=== PATIENT | male | born 1965 | race African-American/Black ===

== ENCOUNTER → 2018-11-24 | Outpatient (CLI) | payer OTHER ==
--- NOTE | 2018-11-24 13:40 | RAD ---
EXAM: Right hip, 2 views. HISTORY: Fall. Pain. COMPARISON: None. FINDINGS: 2 views the right hip are obtained. There is no fracture, dislocation or subluxation. There is marginal spurring of the femoral head. IMPRESSION: Mild right hip osteoarthritis. No acute osseous finding. Electronically signed by: Eli Nails MD (11/24/2018 1:37 PM) [id number]
== END | disposition home or self-care (01) ==
LOC: PMG 12:11
PROVIDERS: ATTEND Registered Nurse
DX: M16.11 Unilateral primary osteoarthritis, right hip (principal)
CPT/HCPCS: 73502

== ENCOUNTER → 2018-12-09 | Outpatient (CLI) | payer OTHER ==
--- NOTE | 2018-12-09 14:15 | RAD ---
Right little finger, 2 views, 12/04/2018: HISTORY: Pain, previous injury No previous radiographs are available at this time for comparison purposes. There appears to be fusion of the PIP joint. There is deformity of the DIP joint with erosive changes along the articular margins. No acute fracture or dislocation is evident. The limited view of the right hand shows no other findings to suggest an erosive arthropathy. The DIP joint changes of the little finger may be due to old trauma or chronic infection. Electronically signed by: Jose Luis Trevizo MD (12/09/2018 2:12 PM) [facility]
== END | disposition home or self-care (01) ==
LOC: PMG 11:26
PROVIDERS: ATTEND Registered Nurse
DX: M20.091 Other deformity of right finger(s) (principal)
CPT/HCPCS: 73140

== ENCOUNTER 2021-09-02 09:43 | Emergency (ER) | payer OTHER ==
[~2021-09-02] VITALS: Ht 182.9 cm; Wt 87.0 kg
[2021-09-02 10:06] VITALS: BP 143/94
--- NOTE | 2021-09-02 10:10 | PHYS DOC ---
General Adult HPI: HPI: Patient is a 56-year-old male who presents to the emergency department with a 3- day history of a nonproductive cough, body aches and decreased appetite. Patient rates his generalized body ache 7 out of 10. No treatment prior to arrival. Patient resides at the [facility] and states that people have been coughing all around him but he does not have any known sick exposures. Patient has a history of high cholesterol and COPD. Patient reports that he is not aware that he has a history of COPD but according to staff at the [facility] he does. Patient denies taking any medications for his COPD. He is a current smoker. Patient denies shortness of breath, fevers, nausea, vomiting, chest pain, loss of taste or smell. Patient's vital signs are stable, he is afebrile and in no acute distress. (YONIS GARY APRN) Review of Systems: Review of Systems: Constitutional: See HPI Respiratory: See HPI Cardiovascular: See HPI GI: See HPI Musculoskeletal: See HPI (YONIS GARY APRN) Physical Exam: PE: Constitutional: Well developed, well nourished, no acute distress, non-toxic appearance. [] HENT: Normocephalic, atraumatic, bilateral external ears normal, oropharynx moist, no oral exudates, nose normal. [] Eyes: PERRL, EOMI, conjunctiva normal, no discharge. [] Neck: Normal range of motion, no stridor Cardiovascular:Heart rate regular rhythm, no murmur [] Lungs & Thorax: Bilateral breath sounds clear to auscultation [] Abdomen: Bowel sounds normal, soft, no tenderness, no masses, no pulsatile masses. [] Skin: Warm, dry, no erythema, no rash. [] Back: Normal range of motion Extremities: No tenderness, no cyanosis, no clubbing, ROM intact, no edema. [] Neurologic: Alert and oriented X 3, normal motor function, normal sensory function, no focal deficits noted. [] Psychologic: Affect normal, judgement normal, mood normal. [] (YONIS GARY APRN) Current Patient Data: Labs: Laboratory Tests Test 09/02/21 10:22 Influenza Type A (Rapid) Negative Influenza Type B (Rapid) Negative Current Medications Medications (Trade) Dose Ordered Sig/Lubna Route PRN Reason Start Time Stop Time Status Last Admin Dose Admin Ibuprofen (Motrin) 600 mg 1X ONCE PO 09/02/21 10:15 09/02/21 10:16 DC 09/02/21 10:20 (YONIS GARY APRN) EKG: EKG: [] (YONIS GARY APRN) Radiology/Procedures: Radiology/Procedures: []PROCEDURE: PORTABLE CHEST 1V EXAM: Chest, single view. HISTORY: Cough. COMPARISON: None. FINDINGS: A frontal view of the chest is obtained. There is multifocal interstitial infiltrate within the right greater than left lung. There is no consolidation, pleural effusion or pneumothorax. The heart is normal in size. IMPRESSION: Multifocal right greater than left lung interstitial infiltrate. Electronically signed by: Eli Bonilla MD (09/02/2021 10:22 AM) [id number] DICTATED AND SIGNED BY: ELI BONILLA MD DATE: 09/02/21 1022 CC: YONIS GARY APRN; ELADIA SANTIAGO PHOTO COLORER-C ~MTH0 0 (YONIS GARY APRN) Heart Score: C/O Chest Pain: No Risk Factors: Risk Factors: DM, Current or recent (<one month) smoker, HTN, HLP, family history of CAD, obesity. Risk Scores: Score 0 - 3: 2.5% MACE over next 6 weeks - Discharge Home Score 4 - 6: 20.3% MACE over next 6 weeks - Admit for Clinical Observation Score 7 - 10: 72.7% MACE over next 6 weeks - Early Invasive Strategies (YONIS GARY APRN) Course & Med Decision Making: Course & Med Decision Making Pertinent Labs and Imaging studies reviewed. (See chart for details) [] Patient presents to the emergency department with a 3-day history of cough, body aches and decreased appetite. Patient's vital signs are stable and he is in no acute distress. His temperature is 99.6. Patient be tested for influenza and COVID-19. Patient's rapid influenza test was negative. Patient's rapid Covid test was positive. Chest x-ray was performed that showed Covid pneumonia, patient will be treated with an antibiotic. Due to patient's borderline fever and his body aches, he will be given a dose of ibuprofen in the emergency department. Patient's vital signs are stable and he is in no acute distress, he is not requiring any oxygen. Patient advised to increase his fluids, rest, use Tylenol and Motrin at home. Advised to use pulse oximetry to monitor his oxygen saturations. I discussed with patient all findings and diagnostic testing as well as the need to follow-up with PCP for further evaluation and treatment or return to the ER if any new or worsening symptoms. Strict return precautions were also discussed at length. Patient voiced understanding and agreement with the plan. Patient is hemodynamically stable at the time of disposition. (YONIS GARY APRN) Dragon Disclaimer: Dragon Disclaimer: This electronic medical record was generated, in whole or in part, using a voice recognition dictation system. (YONIS GARY APRN) Attending Co-Sign The patient was seen and interviewed as well as examined at the bedside. The chart was reviewed. The case was discussed. Agree with the plan of care. (JUAN JOSE GARCIA DO) Departure Departure: Impression: Primary Impression: Pneumonia due to COVID-19 virus Additional Impression: COVID-19 Disposition: 01 HOME / SELF CARE / HOMELESS Condition: GOOD Referrals: ELADIA SANTIAGO PHOTO COLORER-C (PCP) Patient Instructions: Pneumonia, Adult Additional Instructions: You were seen in the emergency department for cough, body aches decreased appetite. Your rapid influenza test was negative and your rapid Covid test was positive. We performed a chest x-ray in the emergency department that showed Covid pneumonia. You will be treated with an antibiotic. Please make sure that you start and finish it completely. Please increase your fluids and rest. For your body aches and/or fevers you can take Tylenol and ibuprofen. You should purchase a pulse oximeter and monitor your oxygen saturations and your heart rate at home. Please return to the emergency department if your oxygen s aturation drops below 90%. Please follow-up with your primary care provider tomorrow regarding your ER visit. Please return to the emergency department if you develop shortness of breath, high fevers refractory to treatment, intractable nausea or vomiting, chest pain, weakness or any new or worsening concerns. Scripts Azithromycin (AZITHROMYCIN TABLET) 250 Mg Tablet 1 PKG PO UD for pneumonia for 5 Days, #6 TAB 0 Refills 2 the first day followed by 1 for days 2-5 Prov: YONIS GARY APRN 09/02/21 YONIS GARY APRN Sep 02, 2021 10:10 JUAN JOSE GRACIA DO Sep 02, 2021 16:15
[2021-09-02] MEDS ORDERED: IBUPROFEN 600 MG TABLET. PO ONE (10:15)
--- NOTE | 2021-09-02 10:25 | RAD ---
EXAM: Chest, single view. HISTORY: Cough. COMPARISON: None. FINDINGS: A frontal view of the chest is obtained. There is multifocal interstitial infiltrate within the right greater than left lung. There is no consolidation, pleural effusion or pneumothorax. The h eart is normal in size. IMPRESSION: Multifocal right greater than left lung interstitial infiltrate. Electronically signed by: Eli Nails MD (09/02/2021 10:22 AM) [id number]
[2021-09-02 11:18] LABS: INFLUENZA A PATIENT NEGATIVE (NEGATIVE); INFLUENZA B PATIENT NEGATIVE (NEGATIVE)
[2021-09-02] MEDS ORDERED: AZIT250T6 PO (11:27)
== END 2021-09-02 12:05 | disposition home or self-care (01) ==
LOC: ER 09:43
DX: U07.1 COVID-19 (principal); J12.82 Pneumonia due to coronavirus disease 2019; E78.00 Pure hypercholesterolemia, unspecified; J44.9 Chronic obstructive pulmonary disease, unspecified; F17.200 Nicotine dependence, unspecified, uncomplicated
CPT/HCPCS: 71045; 87426; 87804; 99284; C9803; U0003

== ENCOUNTER 2021-09-06 11:03 | Emergency (ER) | payer OTHER ==
[~2021-09-06] VITALS: Ht 182.9 cm; Wt 87.0 kg
[~2021-09-06 11:03] MED LIST: AZIT250T6 PO
[2021-09-06] MEDS ORDERED: ACETAMINOPHEN 500 MG TABLET PO ONE (12:15)
[2021-09-06] MEDS ORDERED: IOHEXOL 350 MG/ML 100 ML VIAL. IV ONE (12:15)
[2021-09-06] MEDS ORDERED: DEXAMETHASONE SOD PHOS 10 MG/ML VIAL. IVP ONE (12:15)
[2021-09-06] MEDS ORDERED: IV NORMAL SALINE 1,000ML 1,000 ML IV ONE (12:15)
[2021-09-06] MEDS ORDERED: AZITHROMYCIN 500 MG in IV NORMAL SALINE 250ML 250 ML IV ONE (12:15)
[2021-09-06] MEDS ORDERED: 0.9 % SODIUM CHLORIDE 10 ML DISP.SYRIN. IV PRN (12:15)
[2021-09-06] MEDS ORDERED: AZITHROMYCIN 500 MG VIAL. IV ONE (12:33)
[2021-09-06] MEDS ORDERED: IV NORMAL SALINE 250ML 250 ML ONE (12:33)
--- NOTE | 2021-09-06 12:36 | PHYS DOC ---
Past History Past Surgical History: No Surgical History Alcohol Use: Sober Adult General Chief Complaint Chief Complaint: DYSPNEA/RESPIRATOY DISTRESS HPI HPI Patient is a 56-year-old male patient with no significant medical history presented to the ED today with worsening Covid symptoms. Patient states he was diagnosed with COVID-19 4 days ago and sent home on azithromycin. He states his symptoms are getting worse. He states he has increased coughing, shortness of breath, fatigue and currently running a fever. Reports chest discomfort when coughing. He states he was not vaccinated against COVID19 Review of Systems Review of Systems Constitutional: reports fever Eyes: Denies change in visual acuity, redness, or eye pain [] HENT: Denies nasal congestion or sore throat [] Respiratory: Reports cough and shortness of breath [] Cardiovascular: No additional information not addressed in HPI [] GI: Denies abdominal pain, nausea, vomiting, bloody stools or diarrhea [] : Denies dysuria or hematuria [] Musculoskeletal: Denies back pain or joint pain [] Integument: Denies rash or skin lesions [] Neurologic: Denies headache, focal weakness or sensory changes [] All other systems were reviewed and found to be within normal limits, except as documented in this note. Current Medications Current Medications Current Medications Medications (Trade) Dose Ordered Sig/Lubna Start Time Stop Time Status Last Admin Dose Admin Acetaminophen (Tylenol) 1,000 mg 1X ONCE 09/06/21 12:15 09/06/21 12:16 DC Azithromycin 500 mg/Sodium Chloride 250 ml @ 250 mls/hr 1X ONCE 09/06/21 12:15 09/06/21 13:14 Dexamethasone Sodium Phosphate (Decadron) 10 mg 1X ONCE 09/06/21 12:15 09/06/21 12:16 DC Iohexol (Omnipaque 350 Mg/ml) 100 ml 1X ONCE 09/06/21 12:15 09/06/21 12:20 DC Sodium Chloride 1,000 ml @ 1,000 mls/hr 1X ONCE 09/06/21 12:15 09/06/21 13:14 Sodium Chloride (Normal Saline Flush) 10 ml QSHIFT PRN 09/06/21 12:15 Allergies Allergies Allergies Coded Allergies Type Severity Reaction Last Updated Verified No Known Drug Allergies 09/02/21 No Physical Exam Physical Exam Constitutional: Well developed, well nourished, no acute distress, non-toxic appearance. [] HENT: Normocephalic, atraumatic, bilateral external ears normal, oropharynx moist, no oral exudates, nose normal. [] Eyes: PERRLA, EOMI, conjunctiva normal, no discharge. [] Neck: Normal range of motion, no tenderness, supple, no stridor. [] Cardiovascular:Heart rate regular rhythm, no murmur [] Lungs & Thorax: Bilateral breath sounds clear to auscultation [] Abdomen: Bowel sounds normal, soft, no tenderness, no masses, no pulsatile masses. [] Skin: Warm, dry, no erythema, no rash. [] Back: No tenderness, no CVA tenderness. [] Extremities: No tenderness, no cyanosis, no clubbing, ROM intact, no edema. [] Neurologic: Alert and oriented X 3, normal motor function, normal sensory function, no focal deficits noted. [] Psychologic: Affect normal, judgement normal, mood normal. [] Current Patient Data Vital Signs Vital Signs Date Time Temp Pulse Resp B/P (MAP) Pulse Ox O2 Delivery O2 Flow Rate FiO2 09/06/21 11:45 99.6 76 24 101/56 (71) 94 Room Air EKG EKG [] Radiology/Procedures Radiology/Procedures []PROCEDURE: CT ANGIOGRAPHY CHEST CTA CHEST History: Short of air, positive Covid. Rule out PE. Comparison: None. Technique: CTA of the pulmonary arteries with intravenous contrast. 3-D postprocessing was performed. Findings: Pulmonary arteries: No pulmonary embolism. Aorta and great vessels: No aneurysm or dissection of the aortic arch or thoracic aorta. Thyroid: No significant abnormalities. Mediastinum and reynaldo: Enlarged right lower pretracheal lymph node measuring 1.1 cm short axis and subcarinal lymph node measuring 1.1 cm short axis, likely reactive. Esophagus: The visualized esophagus is normal. Heart: The heart is normal in size. There is no pericardial effusion. Airways, Lungs, Pleura: Airways are patent. There are patchy predominantly peripheral airspace opacities bilaterally. No pleural effusion or pneumothorax. Upper abdomen: Limited evaluation of the upper abdomen is unremarkable. Osseous structures and soft tissues: Bilateral gynecomastia. Impression: 1. No pulmonary embolism, aortic aneurysm or aortic dissection. 2. Patchy bilateral airspace disease compatible with Covid pneumonia. ------ Exposure: One or more of the following individualized dose reduction techniques were utilized for this examination: 1. Automated exposure control 2. Adjustment of the mA and/or kV according to patient size 3. Use of iterative reconstruction technique. Electronically signed by: Jeff Patterson MD (09/06/2021 1:41 PM) [facility] DICTATED AND SIGNED BY: JEFF PATTERSON MD DATE: 09/06/21 2170 CC: RASHID TOMLIN APRN; ELADIA SANTIAGO NOCTURNIST PHYSICIAN-C ~MTH0 0 Heart Score C/O Chest Pain: N/A Risk Factors: Risk Factors: DM, Current or recent (<one month) smoker, HTN, HLP, family history of CAD, obesity. Risk Scores: Risk Factors: DM, Current or recent (<one month) smoker, HTN, HLP, family histo ry of CAD, obesity. Course & Med Decision Making Course & Med Decision Making Pertinent Labs and Imaging studies reviewed. (See chart for details) This is a 56-year-old male patient presented to the ED today complaining of worsening Covid symptoms. Patient was diagnosed with COVID-19 4 days ago and currently states he has worsening shortness of breath, coughing, fatigue and fevers. Arrives in the ED with a temperature of 99.6, heart rate 76, respiration 24 on room air, O2 sats 94%, blood pressure 101/56. CBC with a WBC of 2.1, hemoglobin 12.5, hematocrit 37.0. Creatinine 1.5 BUN 19. CTA chest was negative for PE, noted for COVID-19 Pneumonia Patient was given Decadron and IV fluids in the ED as well as azithromycin 500 mg IV. Will be discharged with doxycycline for 7 days and Decadron. Provided instructions to follow-up with PCP next week. Instructed to return to the ED at any point symptoms worsen Dragon Disclaimer Dragon Disclaimer This electronic medical record was generated, in whole or in part, using a voice recognition dictation system. Departure Departure: Impression: Primary Impression: COVID-19 Additional Impressions: Pneumonia due to COVID-19 virus Fever Shortness of breath Disposition: HOME / SELF CARE / HOMELESS Condition: STABLE Referrals: ELADIA SANTIAGO NOCTURNIST PHYSICIAN-C (PCP) follow up next week Patient Instructions: Fever, Adult, [id number], Pneumonia, Adult, [id number] Additional Instructions: You were evaluated in the emergency room for Covid 19. Please take the prescri bed medications as ordered. Please quarantine yourself for 7 more days. Take Tylenol or Motrin for pain or fever. Push fluids. Follow-up with your doctor next week Scripts Benzonatate (BENZONATATE) 100 Mg Capsule 1 CAP PO TID, #30 CAP Prov: RASHID TOMLIN APRN 09/06/21 Dexamethasone (Decadron) 4 Mg Tablet 1 TAB PO BID for 5 Days, #10 TAB 0 Refills Prov: RASHID TOMLIN APRN 09/06/21 Albuterol Sulfate (PROVENTIL HFA INHALER) 6.7 Gm Hfa.aer.ad 1 PUFF INH PRN Q4HRS PRN for FOR ASTHMA, #1 EACH 0 Refills Prov: RASHID TOMLIN APRN 09/06/21 Doxycycline Hyclate (DOXYCYCLINE HYCLATE) 100 Mg Tablet 1 TAB PO BID, #14 TAB Prov: RASHID TOMLIN APRN 09/06/21 Problem Qualifiers Additional Impressions: Fever Fever type: unspecified Qualified Codes: R50.9 - Fever, unspecified RASHID TOLMIN APRN Sep 06, 2021 12:36
[2021-09-06 13:07] LABS: BASO % 1 % (0-3); EOS % 0 % (0-3); HEMOGLOBIN 12.5 g/dL (13.0-17.5); LYMPH # 0.3 x10^3/uL (1.0-4.8); LYMPH % 11 % (24-48); MEAN CORPUSCULAR HEMOGLOBIN 31 pg (25-35); MEAN CORPUSCULAR HGB CONC 34 g/dL (31-37); MEAN CORPUSCULAR VOLUME 91 fL (79-100); MONO # 0.3 x10^3/uL (0.0-1.1); MONO % 12 % (0-9); NEUT # 1.9 x10^3uL (1.8-7.7); NEUT % 76 % (31-73); PLATELET COUNT 182 x10^3/uL (140-400); RED BLOOD COUNT 4.07 x10^6/uL (4.30-5.70); RED CELL DISTRIBUTION WIDTH 13.5 % (11.5-14.5); WHITE BLOOD COUNT 2.5 x10^3/uL (4.0-11.0)
[2021-09-06 13:15] LABS: CALCIUM 8.2 mg/dL (8.5-10.1); CREATININE 1.5 mg/dL (0.7-1.3); GFR 58.6; POTASSIUM 3.8 mmol/L (3.5-5.1)
[2021-09-06 13:20] LABS: ALBUMIN 3.5 g/dL (3.4-5.0); ALBUMIN/GLOBULIN RATIO 0.9 (1.0-1.7); TOTAL BILIRUBIN 0.7 mg/dL (0.2-1.0); TOTAL PROTEIN 7.2 g/dL (6.4-8.2)
--- NOTE | 2021-09-06 13:43 | RAD ---
CTA CHEST History: Short of air, positive Covid. Rule out PE. Comparison: None. Technique: CTA of the pulmonary arteries with intravenous contrast. 3-D postprocessing was performed. Findings: Pulmonary arteries: No pulmonary embolism. Aorta and great vessels: No aneurysm or dissection of the aortic arch or thoracic aorta. Thyroid: No significant abnormalities. Mediastinum and reynaldo: Enlarged right lower pretracheal lymph node measuring 1.1 cm short axis and sub carinal lymph node measuring 1.1 cm short axis, likely reactive. Esophagus: The visualized esophagus is normal. Heart: The heart is normal in size. There is no pericardial effusion. Airways, Lungs, Pleura: Airways are patent. There are patchy predominantly peripheral airspace opacit ies bilaterally. No pleural effusion or pneumothorax. Upper abdomen: Limited evaluation of the upper abdomen is unremarkable. Osseous structures and soft tissues: Bilateral gynecomastia. Impression: 1. No pulmonary embolism, aortic aneurysm or aortic dissection. 2. Patchy bilateral airspace disease compatible with Covid pneumonia. ------ Exposure: One or more of the following individualized dose reduction techniques were utilized for thi s examination: 1. Automated exposure control 2. Adjustment of the mA and/or kV according to patient size 3. Use of iterative reconstruction technique. Electronically signed by: Jeff Patterson MD (09/06/2021 1:41 PM) [facility]
[2021-09-06] MEDS ORDERED: ALBU2.5V8 INH (13:53)
[2021-09-06] MEDS ORDERED: BENZ-8 PO (13:53)
[2021-09-06] MEDS ORDERED: DOXY100T PO (13:53)
[2021-09-06] MEDS ORDERED: DEXA4TAB63 PO (13:53)
[2021-09-06 14:26] VITALS: BP 126/61
== END 2021-09-06 14:30 | disposition home or self-care (01) ==
LOC: ER 11:03
DX: U07.1 COVID-19 (principal); J12.82 Pneumonia due to coronavirus disease 2019
CPT/HCPCS: 36415; 71275; 80053; 83605; 85025; 87040; 96365; 96375; 99285; J0456; J1100; J7030; J7050; Q9967

== ENCOUNTER 2021-09-08 15:50 | Emergency (ER) | payer OTHER ==
[~2021-09-08 15:50] MED LIST changes: +ALBU2.5V8 INH; +BENZ-8 PO; +DEXA4TAB63 PO; +DOXY100T PO
--- NOTE | 2021-09-08 16:01 | PHYS DOC ---
Past History Past Surgical History: No Surgical History Alcohol Use: Sober Adult General Chief Complaint Chief Complaint: SHORTNESS OF BREATH HPI HPI Patient is a 56-year-old male presenting for known Covid infection. He was diagnosed at our facility 6 days prior and subsequently discharged with azithromycin prescription after unremarkable work-up. He came back 48 hours ago for ongoing symptoms and had comprehensive evaluation that included CT angio of the chest that again was nonconcerning for any emergent or surgical issues, just findings consistent with Covid pneumonia. Patient reports he went back to [facility] but ongoing upper respiratory symptoms, generalized body aches, fatigue, and decreased appetite prompted him to come in for repeat evaluation. Reports he has not been taking his antibiotics as the [facility] has not filled them. He has not been taking any other medication such as Tylenol and/or ibuprofen for aches and pains. He was unvaccinated against COVID-19. Denies any other noteworthy comorbid conditions Review of Systems Review of Systems Fourteen body systems of review of systems have been reviewed. See HPI for pertinent positives and negative responses, other pope all other systems are negative, non-pertinent or non-contributory Allergies Allergies Allergies Coded Allergies Type Severity Reaction Last Updated Verified No Known Drug Allergies 09/02/21 No Physical Exam Physical Exam Constitutional: Well developed, well nourished, no acute distress, non-toxic appearance. HENT: Normocephalic, atraumatic, bilateral external ears normal, oropharynx moist, no oral exudates, bilateral nasal turbinates engorged with anterior rhinorrhea present Eyes: PERRLA, EOMI, conjunctiva normal, no discharge. Neck: Normal range of motion, no tenderness, supple, no stridor. Cardiovascular: Heart rate regular, sinus rhythm, no murmurs rubs or gallops Lungs & Thorax: No obvious respiratory distress, hyperventilating on arrival with crackles present to bilateral lung bases in no obvious distress, no accessory muscle use Abdomen: Bowel sounds normal, soft, no tenderness, no masses, no pulsatile masses. Nonsurgical abdomen, no peritoneal signs Skin: Warm, dry, no erythema, no rash. Back: No tenderness, no CVA tenderness. Extremities: No tenderness, no cyanosis, no clubbing, ROM intact, no edema. Neurologic: Alert and oriented X 3, grossly normal motor & sensory function, no focal deficits noted. Psychologic: Anxious affect and mood Current Patient Data Lab Results Laboratory Tests Test 09/08/21 16:15 White Blood Count 4.8 x10^3/uL Red Blood Count 3.81 x10^6/uL Hemoglobin 11.7 g/dL Hematocrit 35.0 % Mean Corpuscular Volume 92 fL Mean Corpuscular Hemoglobin 31 pg Mean Corpuscular Hemoglobin Concent 33 g/dL Red Cell Distribution Width 13.8 % Platelet Count 277 x10^3/uL Neutrophils (%) (Auto) 77 % Lymphocytes (%) (Auto) 9 % Monocytes (%) (Auto) 14 % Eosinophils (%) (Auto) 0 % Basophils (%) (Auto) 0 % Neutrophils # (Auto) 3.7 x10^3uL Lymphocytes # (Auto) 0.4 x10^3/uL Monocytes # (Auto) 0.6 x10^3/uL Eosinophils # (Auto) 0.0 x10^3/uL Basophils # (Auto) 0.0 x10^3/uL Sodium Level 137 mmol/L Potassium Level 4.0 mmol/L Chloride Level 102 mmol/L Carbon Dioxide Level 31 mmol/L Anion Gap 4 Blood Urea Nitrogen 19 mg/dL Creatinine 1.3 mg/dL Estimated GFR (Cockcroft-Gault) 69.1 BUN/Creatinine Ratio 15 Glucose Level 103 mg/dL Calcium Level 8.2 mg/dL Total Bilirubin 1.3 mg/dL Aspartate Amino Transf (AST/SGOT) 65 U/L Alanine Aminotransferase (ALT/SGPT) 35 U/L Alkaline Phosphatase 47 U/L Troponin I High Sensitivity 17 ng/L Total Protein 6.6 g/dL Albumin 3.4 g/dL Albumin/Globulin Ratio 1.1 Current Medications Medications (Trade) Dose Ordered Sig/Lubna Route PRN Reason Start Time Stop Time Status Last Admin Dose Admin Sodium Chloride 1,000 ml @ 1,000 mls/hr 1X ONCE IV 09/08/21 16:15 09/08/21 17:14 Azithromycin 500 mg/Sodium Chloride 250 ml @ 250 mls/hr 1X ONCE IV 09/08/21 16:15 09/08/21 17:14 Sodium Chloride 250 ml @ As Directed STK-MED ONCE .ROUTE 09/08/21 16:59 09/08/21 16:59 DC Azithromycin (Zithromax) 500 mg STK-MED ONCE IV 09/08/21 16:59 09/08/21 16:59 DC EKG EKG EKG ordered and interpreted by myself hours as sinus rhythm at 80 bpm, unremarkable intervals, no axis deviation, no obvious ischemic findings, no STEMI Radiology/Procedures Radiology/Procedures XR CHEST 1V Clinical History: Reason: shob, HX COVID PNEUMONIA / Spl. Instructions: / History: Technique: AP view of the chest was obtained at 09/08/2021 4:25 PM. Comparison: September 02, 2021. Findings: The heart is top normal limits in size. The portal vessels appear normal. There is patchy peripheral opacities of lungs bilaterally. The pleural margins are clear. Impression: COVID pneumonia. This appears slightly worse. Electronically signed by: Hero Collins III, MD (09/08/2021 4:32 PM) [facility] Heart Score C/O Chest Pain: No HEART Score for Chest Pain: HEART Score for Chest Pain Response (Comments) Value History Slighlty/Non-Suspicious 0 ECG Normal 0 Age >45 - < 65 1 Risk Factors 1 or 2 Risk Factors 1 Troponin < Normal Limit 0 Total 2 Risk Factors: Risk Factors: DM, Current or recent (<one month) smoker, HTN, HLP, family history of CAD, obesity. Risk Scores: Risk Factors: DM, Current or recent (<one month) smoker, HTN, HLP, family history of CAD, obesity. Course & Med Decision Making Course & Med Decision Making Airway patent, breathing unlabored, IV access and vitals obtained concerning for tachypnea from hyperventilation only HPI physical exam and comprehensive ER work-up nonconcerning for any emergent or surgical issues. He continues to be symptomatic from COVID-19 in an unvaccinated individual Patient has not been taking prescribed azithromycin for COVID-19 pneumonia due to issues at [facility] filling sent prescription. I contacted their facility, issues were due to Golden holiday, patient received dose today and has RX ready to be filled for continued use tomorrow Patient has not been adhering to pulmonary hygiene recommendations and has been in bed, he was educated extensively on need to get up, utilize incentive spirometry etc. as sedentary and supine positioning will worsen his condition as we are seeing Ultimately I disclosed there is no indication for further diagnostic work-up or need for hospitalization, he is unfortunately just suffering from classic COVID- 19 symptoms. Continued supportive care practices, medication adherence and self quarantine recommendations given Murali Disclaimer Murali Disclaimer This electronic medical record was generated, in whole or in part, using a voice recognition dictation system. Departure Departure: Impression: Primary Impression: Pneumonia due to COVID-19 virus Disposition: HOME / SELF CARE / HOMELESS Condition: STABLE Referrals: ELADIA SANTIAGOC (PCP) Additional Instructions: As discussed prior to ER departure, your vitals, physical exam and comprehensive ER work-up were nonconcerning for any emergent or surgical issues. You continue to be symptomatic from known COVID-19 virus and have developed a pneumonia. You have not been mobile, have not been taking antibiotics as prescribed, taking any [id number] NSAIDs and/or Tylenol for pain and aches, or exercising proper pulmonary hygiene that was previously discussed with you likely contributing to your ongoing symptoms. There was no indication for further diagnostic work-up and/or need for hospitalization at this time. Your condition will worsen if you do not adhere to prescribed plan of care and as disclosed, there is concern for potential worsening pulmonary infection that could cause respiratory distress, failure and potentially . If any concerning signs or symptoms present prior to safe outpatient follow-up please do not hesitate to come back for repeat evaluation. Is a pleasure to take care of you and I wish you the best going forward. MONICA MERCHANT DO Sep 08, 2021 16:01
[2021-09-08] MEDS ORDERED: AZITHROMYCIN 500 MG in IV NORMAL SALINE 250ML 250 ML IV ONE (16:15)
[2021-09-08] MEDS ORDERED: IV NORMAL SALINE 1,000ML 1,000 ML IV ONE (16:15)
--- NOTE | 2021-09-08 16:15 | EKG ---
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
--- NOTE | 2021-09-08 16:34 | RAD ---
XR CHEST 1V Clinical History: Reason: shob, HX COVID PNEUMONIA / Spl. Instructions: / History: Technique: AP view of the chest was obtained at 09/08/2021 4:25 PM. Comparison: September 02, 2021. Findings: The heart is top normal limits in size. The portal vessels appear normal. There is patchy peripheral opacities of lungs bilaterally. The pleural margins are clear. Impression: COVID pneumonia. This appears slightly worse. Electronically signed by: Hero Collins III, MD (09/08/2021 4:32 PM) [facility]
[2021-09-08 16:42] LABS: BASO % 0 % (0-3); EOS % 0 % (0-3); HEMOGLOBIN 11.7 g/dL (13.0-17.5); LYMPH # 0.4 x10^3/uL (1.0-4.8); LYMPH % 9 % (24-48); MEAN CORPUSCULAR HEMOGLOBIN 31 pg (25-35); MEAN CORPUSCULAR HGB CONC 33 g/dL (31-37); MEAN CORPUSCULAR VOLUME 92 fL (79-100); MONO # 0.6 x10^3/uL (0.0-1.1); MONO % 14 % (0-9); NEUT # 3.7 x10^3uL (1.8-7.7); NEUT % 77 % (31-73); PLATELET COUNT 277 x10^3/uL (140-400); RED BLOOD COUNT 3.81 x10^6/uL (4.30-5.70); RED CELL DISTRIBUTION WIDTH 13.8 % (11.5-14.5); WHITE BLOOD COUNT 4.8 x10^3/uL (4.0-11.0)
[2021-09-08 16:49] LABS: CALCIUM 8.2 mg/dL (8.5-10.1); CREATININE 1.3 mg/dL (0.7-1.3); GFR 69.1
[2021-09-08 16:56] LABS: ALBUMIN 3.4 g/dL (3.4-5.0); ALBUMIN/GLOBULIN RATIO 1.1 (1.0-1.7); TOTAL BILIRUBIN 1.3 mg/dL (0.2-1.0); TOTAL PROTEIN 6.6 g/dL (6.4-8.2)
[2021-09-08] MEDS ORDERED: AZITHROMYCIN 500 MG VIAL. IV ONE (16:59)
[2021-09-08] MEDS ORDERED: IV NORMAL SALINE 250ML 250 ML ONE (16:59)
== END 2021-09-08 18:20 | disposition home or self-care (01) ==
LOC: ER 15:50
DX: U07.1 COVID-19 (principal); J12.82 Pneumonia due to coronavirus disease 2019
CPT/HCPCS: 36415; 71045; 80053; 84484; 85025; 93005; 96361; 96365; 99285; J0456; J7030; J7050

== ENCOUNTER 2021-09-09 08:25 | Emergency (ER) | payer OTHER ==
[~2021-09-09] VITALS: Ht 182.9 cm; Wt 87.0 kg
[2021-09-09] MEDS ORDERED: IV NORMAL SALINE 1,000ML 1,000 ML IV SCH (08:45)
[2021-09-09] MEDS ORDERED: ACETAMINOPHEN 325 MG TABLET PO ONE (08:45)
--- NOTE | 2021-09-09 09:03 | RAD ---
INDICATION: Reason: soa / Spl. Instructions: / History: COMPARISON: September 08, 2021 FINDINGS: Single view of chest obtained. Cardiac mediastinal silhouette is similar prior and prominent in size. Patchy opacities are again seen within the bilateral lungs with increase of the right lung base tacho red to prior. IMPRESSION: * Bilateral pulmonic opacities are again seen including a region of the right lower lung which appea rs increased from prior. Could be secondary to pneumonia. Electronically signed by: Carlos Darby MD (09/09/2021 9:00 AM) [id number]
--- NOTE | 2021-09-09 09:09 | EKG ---
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
--- NOTE | 2021-09-09 09:24 | PHYS DOC ---
Past History Past Surgical History: No Surgical History Alcohol Use: Sober General Adult EDM: Chief Complaint: FATIGUE HPI: HPI: 56 old -[place] male, presents the ED as a bounce back (4th ed visit since 09/02), complains of shortness of breath, headache, fatigue, cough, and abdominal cramping for the past week stating he tested positive for COVID pneumonia. EMR reviewed-cta chest on 09/06 with no pe. Review of Systems: Review of Systems: Constitutional: Denies fever or chills Eyes: Denies change in visual acuity HENT: Denies nasal congestion or sore throat Respiratory: Denies increased work of breathing or retractions Cardiovascular: Denies chest pain or edema GI: Denies nausea, vomiting, bloody stools or diarrhea : Denies dysuria or hematuria Musculoskeletal: Denies back pain or joint pain Integument: Denies rash or diaphoresis Neurologic: Denies focal weakness or sensory changes Endocrine: Denies polyuria or polydipsia Lymphatic: Denies swollen glands Psychiatric: Denies depression or anxiety Current Medications: Current Meds: Current Medications Medications (Trade) Dose Ordered Sig/Lubna Start Time Stop Time Status Last Admin Dose Admin Acetaminophen (Tylenol) 650 mg 1X ONCE 09/09/21 08:45 09/09/21 08:46 DC 09/09/21 08:54 650 MG Sodium Chloride 1,000 ml @ 1,000 mls/hr Q1H 09/09/21 08:45 09/09/21 09:44 09/09/21 09:07 1,000 MLS/HR Allergies: Allergies: Allergies Coded Allergies Type Severity Reaction Last Updated Verified No Known Drug Allergies 09/09/21 No Physical Exam: PE: Constitutional: Well developed, well nourished, no acute distress, non-toxic appearance. HENT: Normocephalic, atraumatic, Eyes: EOMI, conjunctiva normal, no discharge. Neck: Normal range of motion, supple, Cardiovascular: S1/2 present, regular rhythm Lungs & Thorax: Speaking in full sentences, bilateral equal chest rise, tachypnea with speech Abdomen: soft, no tenderness, Skin: Warm, dry, no erythema, no rash. [] Back: No tenderness, no CVA tenderness. [] Extremities: No tenderness, no cyanosis, no lower extremity edema Neurologic: Alert and oriented X 3, normal motor function, normal sensory function, no focal deficits noted. [] Psychologic: Affect normal, judgement normal, mood normal. [] Current Patient Data: Vital Signs: Vital Signs Date Time Temp Pulse Resp B/P (MAP) Pulse Ox O2 Delivery O2 Flow Rate FiO2 09/09/21 08:36 101.1 96 38 146/77 (100) 96 Room Air EKG: EKG: Sinus rhythm 95 bpm of exacerbation, normal intervals, no T wave inversion, no ST elevation or ST depression Radiology/Procedures: Radiology/Procedures: IMAGING REPORT Signed PATIENT: MARY GARCIA ACCOUNT: [id number] : 1965 LOCATION: ER AGE: 56 SEX: M EXAM STATUS: REG ER ORD. PHYSICIAN: MELANY ROMERO DO REASON: soa PROCEDURE: PORTABLE CHEST 1V INDICATION: Reason: soa / Spl. Instructions: / History: COMPARISON: September 08, 2021 FINDINGS: Single view of chest obtained. Cardiac mediastinal silhouette is similar prior and prominent in size. Patchy opacities are again seen within the bilateral lungs with increase of the right lung base compared to prior. IMPRESSION: * Bilateral pulmonic opacities are again seen including a region of the right lower lung which appears increased from prior. Could be secondary to pneumonia. Electronically signed by: Epifanio Irvin MD (09/09/2021 9:00 AM) [id number] DICTATED AND SIGNED BY: EPIFANIO IRVIN MD DATE: 09/09/21 0859 CC: MELANY ROMERO DO; ELADIA SANTIAGO HIDE SELECTOR-C ~MTH0 0 Heart Score: C/O Chest Pain: No Risk Factors: Risk Factors: DM, Current or recent (<one month) smoker, HTN, HLP, family history of CAD, obesity. Risk Scores: Score 0 - 3: 2.5% MACE over next 6 weeks - Discharge Home Score 4 - 6: 20.3% MACE over next 6 weeks - Admit for Clinical Observation Score 7 - 10: 72.7% MACE over next 6 weeks - Early Invasive Strategies Course & Med Decision Making: Course & Med Decision Making Pertinent Labs and Imaging studies reviewed. (See chart for details) Concern for COVID-19 infection with mild tachypnea with speech in setting of medication noncompliance. Does not require any supplemental oxygen. PE study/CTA chest negative 3 days ago. Patient presented from the [facility] and had not refilled his antibiotics or prescriptions from prior ED visit. RN called esteban-pts' Tessalon Perles, doxycycline, inhaler and Decadron will be sent to the [facility]. Will discharge home with strict ED return precautions were given for hypoxia, chest pain, syncope or neurologic deficits. Encouraged urgent outpatient follow-up with PMD for reevaluation and routine care. Life-threatening processes were considered but are low suspicion at this time, given history, physical exam and ED workup. Pt was educated on all prescription medications and adverse effects. All patient's questions were answered and pt was stable at time of discharge. Life/limb-threatening differential includes but is not limited to, ACS, dysrhythmia, pneumothorax or hemothorax, pulmonary embolus, pneumonia, bronchoconstriction, pulmonary edema, angioedema, epiglottitis, tracheitis, Héctor's angina, RPA/SUPERVISOR RICE MILLING, anaphylaxis, angioedema, cardiac tamponade or murmurs, pericarditis, myocarditis, poisoning or toxicity, sepsis or autoimmune/neurologic disease. I have spoken with the patient and/or caregivers. I explained the patient's condition, diagnoses and treatment plan based on the information available to me at this time. I have answered the patient and/or caregiver's questions and addressed any concerns. The patient and/or caregivers have a good understanding of patient's diagnosis, condition and treatment plan as can be expected at this point. Vital signs have been stable. Patient's condition is stable and appropriate for discharge from the emergency department. Patient will pursue further outpatient evaluation with primary care physician or other designated or consulting physician as outlined in the discharge instruc tions. The patient and/or caregivers are agreeable to this plan of care and follow-up instructions have been explained in detail. The patient and/or caregivers have received these instructions in written form and have expressed an understanding of the discharge instructions. The patient and/or caregivers are aware that any significant change of condition or worsening of symptoms should prompt immediate return to this or the closest emergency department or call to 911. Murali Disclaimer: Murali Disclaimer: This electronic medical record was generated, in whole or in part, using a voice recognition dictation system. Departure Departure: Impression: Primary Impression: Pneumonia due to COVID-19 virus Disposition: HOME / SELF CARE / HOMELESS Condition: STABLE Referrals: ELADIA SANTIAGO (PCP) Follow-up with your primary care physician in 24 to 48 hours OR FOLLOW UP WITH FAMILY MEDICINE: [address] [place] [address] Patient Instructions: Pneumonia, Adult Additional Instructions: Return to ED immediately if your oxygen level drops below 90% (purchase a pulse oximetry at a medical supply store), difficulties breathing including rapid breathing or increased work of breathing (skin sucking under ribs), chest pain or stroke-like symptoms (facial droop, speech changes, arm/leg weakness). You have been tested for or diagnosed with COVID-19. It is an infection caused by a new type of coronavirus. COVID-19 will cause cold-like or mild flu symptoms in most. It can cause more severe symptoms like problems breathing in some. There is no treatment for COVID-19. The body will clear the infection over time. Self-care will help to ease discomfort. Steps to Take: Self-Care Rest as needed. Healthy habits may help you feel better. Steps include: Choose healthy foods including fruits and vegetables. Drink water throughout the day. Get plenty of sleep each night. If you smoke, try to quit. It may ease breathing. Avoid alcohol. Keep Others Healthy The virus can spread to others. Droplets are released every time you sneeze or cough. The droplets can get into the mouth, nose, or eyes of people near you and lead to infection. To lower the chances of spreading COVID-19 to others: Stay at home until your doctor has said it is safe to leave. If you tested positive this will mean staying isolated until both of the following are true: At least 7 days have passed since the start of illness. You are free of fever for at least 72 hours without the use of medicine. During this time: - Avoid public areas, events, or transportation. Do not return to work or school until your doctor has said it is safe to do so. - Call ahead if you need to go to a medical center. Let them know you may have COVID-19. It will help them guide you where to go. They may also ask you to wear a facemask when you come to the office. - If you call for emergency medical services, let them know you may have COVID- 19. While at home: - Try to avoid close contact with others. Stay about 6 feet away. - If possible, spend most of your time in a separate room from others. - Use a face mask if you will be in close contact with others such as sharing a room or vehicle. - Have someone wipe down common surfaces in the home. Use household senior analyst programmer every day on areas like doorknobs, counters, or sinks. - Cough or sneeze into a tissue. Throw the tissue away right after use. If a tissue is not available, cough or sneeze into your elbow. - Wash your hands often. Wash them after sneezing or coughing. Use soap and water and wash for at least 20 seconds. Alcohol based hand hand rug cleaner can be used if soap and water is not available. - Do not prepare food for others. Avoid sharing personal items like forks, spoons, or toothbrushes. - Avoid close contact with pets while you are sick. There is no evidence of the virus passing to pets. This is a safety step until more is known about this virus. Isolation can be frustrating. Social interaction can help. Keep in touch with friends and family through phone and tech options. You can still interact with others in yo ur home, just keep a safe distance of about 6 feet. Follow-up: Your doctors office will check in with you to see if there are any changes in your health. You may be asked to keep track of symptoms to share with them. They will also let you know when you are clear to be in public again. Problems to Look Out For: Contact your doctor if your recovery is not going as you expect. Get emergency care if you have problems such as: - Trouble breathing - Nonstop chest pain or pressure - Changes in awareness, confusion, or problems waking - Lips or face have bluish color - Worsening of symptoms If you think you have an emergency, call for emergency medical services right away. [facility] DO Sep 09, 2021 09:24
[2021-09-09 09:36] LABS: BASO % 0 % (0-3); EOS % 0 % (0-3); HEMATOCRIT 34.6 % (39.0-53.0); HEMOGLOBIN 11.6 g/dL (13.0-17.5); LYMPH # 0.3 x10^3/uL (1.0-4.8); LYMPH % 5 % (24-48); MEAN CORPUSCULAR HEMOGLOBIN 31 pg (25-35); MEAN CORPUSCULAR HGB CONC 34 g/dL (31-37); MEAN CORPUSCULAR VOLUME 92 fL (79-100); MONO # 0.5 x10^3/uL (0.0-1.1); MONO % 8 % (0-9); NEUT # 5.1 x10^3uL (1.8-7.7); NEUT % 87 % (31-73); PLATELET COUNT 286 x10^3/uL (140-400); RED BLOOD COUNT 3.77 x10^6/uL (4.30-5.70); WHITE BLOOD COUNT 5.9 x10^3/uL (4.0-11.0)
[2021-09-09 09:46] LABS: CALCIUM 8.3 mg/dL (8.5-10.1); CREATININE 1.2 mg/dL (0.7-1.3); GFR 75.8; POTASSIUM 3.8 mmol/L (3.5-5.1)
[2021-09-09 09:57] VITALS: BP 146/82
[2021-09-09 09:59] LABS: ALBUMIN 3.1 g/dL (3.4-5.0); ALBUMIN/GLOBULIN RATIO 0.8 (1.0-1.7); MAGNESIUM 2.3 mg/dL (1.8-2.4); TOTAL BILIRUBIN 1.7 mg/dL (0.2-1.0); TOTAL PROTEIN 7.1 g/dL (6.4-8.2)
[2021-09-09 10:44] LABS: BARBITURATES NEG (NEG); BENZODIAZEPINES NEG (NEG); CANNABINOIDS NEG (NEG); COCAINE NEG (NEG); METHADONE NEG (NEG); OPIATES NEG (NEG); PHENCYCLIDINE NEG (NEG)
[2021-09-09 10:47] LABS: BACTERIA,URINE 0 /HPF (0-FEW); BILIRUBIN,URINE SMALL (NEG); CLARITY,URINE CLEAR; COLOR,URINE AMBER; GLUCOSE,URINE 100 mg/dL (NEG); NITRITE,URINE POS (NEG); RBC,URINE OCC /HPF (0-2); SQUAMOUS EPITHELIAL CELL,UR FEW /LPF; UROBILINOGEN,URINE >=8.0 mg/dL (0.2 mg/dL)
[2021-09-09 11:03] LABS: AMPHETAMINE/METHAMPHETAMINE NEG (NEG)
[2021-09-09] MEDS ORDERED: KETOROLAC 15 MG/ML VIAL. IVP ONE (12:00)
== END 2021-09-09 13:30 | disposition home or self-care (01) ==
LOC: ER 08:25
DX: U07.1 COVID-19 (principal); J12.82 Pneumonia due to coronavirus disease 2019
CPT/HCPCS: 36415; 71045; 80053; 80307; 81001; 82550; 83605; 83690; 83735; 83880; 84484; 85025; 87040; 87086; 93005; 96361; 96374; 99285; J1885; J7030